=== PATIENT | male | born 1980 | race Caucasian/White ===

== ENCOUNTER → 2020-02-17 | Outpatient (CLI) | payer SELFPAY ==
[~2020-02-17] MED LIST: CLONI1TA PO; LEXA5TAB13 PO; LOSA50TA88 PO; PANT20TA6 PO; SERO1TAB PO
== END ==
LOC: M LABSMTC 14:09
PROVIDERS: ATTEND Pediatrics
DX: Z20.828 Contact with and (suspected) exposure to other viral communicable diseases (principal)

== ENCOUNTER 2020-03-24 16:35 | Emergency (ER) | payer OTHER, SELFPAY ==
[~2020-03-24] VITALS: Ht 177.8 cm; Wt 129.7 kg
[2020-03-24 17:21] LABS: BASO # 0.1 10^3/uL (0.0-0.2); BASO % 1.1 % (0.0-1.0); EOS # 0.2 10^3/uL (0.0-0.5); EOS % 2.8 % (0.0-3.0); HEMATOCRIT 46.7 % (42.0-52.0); HEMOGLOBIN 15.3 g/dl (13.5-17.5); LYMPH # 2.6 10^3/uL (1.5-5.0); LYMPH % 32.2 % (24.0-44.0); MEAN CORPUSCULAR HEMOGLOBIN 30.2 pg (27.0-33.0); MEAN CORPUSCULAR HGB CONC 32.8 g/dl (32.0-36.5); MEAN CORPUSCULAR VOLUME 92.3 fl (80.0-96.0); MONO # 0.9 10^3/uL (0.0-0.8); MONO % 10.4 % (0.0-5.0); NEUTROPHILS # 4.3 10^3/uL (1.5-8.5); PLATELET COUNT, AUTOMATED 346 10^3/uL (150-450); RED BLOOD COUNT 5.06 10^6/uL (4.30-6.10); WHITE BLOOD COUNT 8.1 10^3/uL (4.0-10.0)
[2020-03-24 17:51] LABS: ALBUMIN 3.6 GM/DL (3.2-5.2); ALT/SGPT 34 U/L (12-78); BILIRUBIN,DIRECT 0.1 MG/DL (0.0-0.2); BILIRUBIN,TOTAL 0.3 MG/DL (0.2-1.0); BLOOD UREA NITROGEN 6 MG/DL (7-18); CALCIUM LEVEL 9.8 MG/DL (8.5-10.1); CARBON DIOXIDE LEVEL 26 MEQ/L (21-32); CHLORIDE LEVEL 106 MEQ/L (98-107); CREATININE FOR GFR 0.87 MG/DL (0.70-1.30); GLOMERULAR FILTRATION RATE > 60.0 (>60); GLUCOSE, FASTING 78 MG/DL (70-100); LIPASE 64 U/L (73-393); POTASSIUM SERUM 3.9 MEQ/L (3.5-5.1); SODIUM LEVEL 141 MEQ/L (136-145); TOTAL PROTEIN 7.1 GM/DL (6.4-8.2)
[2020-03-24] MEDS ORDERED: KETOROLAC 30 MG/ML 1ML VIAL IV ONE (18:15)
[2020-03-24] MEDS ORDERED: ONDANSETRON 4MG/2ML VIAL IV ONE (18:15)
[2020-03-24] MEDS ORDERED: NS 1,000 ML IV ONE (18:15)
[2020-03-24] MEDS ORDERED: ISOVUE-370 76% 100ML VIAL As Ordered ONE (18:23)
[2020-03-24] MEDS ORDERED: PANT20TA6 PO (18:29)
[2020-03-24] MEDS ORDERED: CLONI1TA PO (18:29)
[2020-03-24] MEDS ORDERED: SERO1TAB PO (18:29)
[2020-03-24] MEDS ORDERED: LEXA5TAB13 PO (18:29)
[2020-03-24] MEDS ORDERED: LOSA50TA88 PO (18:29)
[2020-03-24 20:55] VITALS: BP 142/89
--- NOTE | 2020-03-25 07:55 | REP ---
INDICATION: severe abd pain with hx of multiple hernias. Repeat dictation. Preliminary report is provided at the time of the exam by sandra POOL. COMPARISON: None. TECHNIQUE: Helical scanning was acquired and 4 mm axial images are re-formatted. Coronal and sagittal MPR images were generated and reviewed. The contrast enhancement dose is 100 mL of intravenous Isovue 370. FINDINGS: Preliminary digital stone gluer radiograph demonstrates an unremarkable bowel gas pattern. There is no evidence of infiltrate or significant lung nodule in the lung bases. No pleural effusion is seen. There is evidence of mild diffuse fatty infiltration of the liver. No focal liver lesion is seen. The liver is not enlarged. The spleen is normal in size homogeneous in texture. The gallbladder is somewhat contracted in appearance no definite wall thickening or stone. No pericholecystic fluid is seen. Common bile duct does not appear to be dilated. No intrahepatic biliary ductal dilation is observed. There is a descending duodenal diverticulum. No abnormality is noted in the pancreas. Normal adrenal glands are seen bilaterally. Kidneys enhance symmetrically and are morphologically intact. A small sliding-type hiatal hernia is noted. A normal appendix is seen in the right lower quadrant. Small and large bowel loops are normal in the upper abdomen. There is some diastasis of the rectus abdominus muscles and there appears to have been a ventral hernia repair. There is persistent herniation of a small quantity of abdominal fat and the anterior wall of adjacent loop of small bowel in the infraumbilical region of the midline abdominal wall. There also appears to be a left inguinal hernia trans [place] abdominal fat. Prostate is mildly prominent. Seminal vesicles and urinary bladder are unremarkable. On bone window settings, there are mild degenerative spine changes. There is an old healed rib fracture of the right posterior 11th rib. No bony destructive lesion. IMPRESSION: Hiatal, infraumbilical ventral, and left inguinal hernias as above. Mild fatty infiltration of the liver. No evidence of bowel obstruction or other acute abdominal abnormality. The gallbladder is small and contracted. <Electronically signed by Valeriano Vazquez > 03/25/20 [id number]
== END 2020-03-24 21:05 | disposition home or self-care (01) ==
LOC: M ED 16:35
DX: R10.9 Unspecified abdominal pain (principal); K42.9 Umbilical hernia without obstruction or gangrene; K76.0 Fatty (change of) liver, not elsewhere classified; F17.200 Nicotine dependence, unspecified, uncomplicated; K21.9 Gastro-esophageal reflux disease without esophagitis; I10 Essential (primary) hypertension; Z91.018 Allergy to other foods
CPT/HCPCS: 74177; 80048; 80076; 81001; 83690; 85025; 96361; 96374; 99284; J1885; J2405; Q9967

== ENCOUNTER 2020-05-07 21:33 | Inpatient (IN) | payer MEDICAID, OTHER, SELFPAY ==
[~2020-05-07] VITALS: Ht 177.8 cm; Wt 128.4 kg
[2020-05-07] MEDS ORDERED: HALOPERIDOL 5MG/ML VIAL (J1630 PER 1) IV ONE (22:00)
[2020-05-07 22:20] LABS: BASO # 0.1 10^3/uL (0.0-0.2); BASO % 0.6 % (0.0-1.0); EOS # 0.3 10^3/uL (0.0-0.5); EOS % 2.7 % (0.0-3.0); HEMATOCRIT 42.7 % (42.0-52.0); HEMOGLOBIN 13.8 g/dl (13.5-17.5); LYMPH # 2.7 10^3/uL (1.5-5.0); LYMPH % 25.6 % (24.0-44.0); MEAN CORPUSCULAR HEMOGLOBIN 29.9 pg (27.0-33.0); MEAN CORPUSCULAR HGB CONC 32.3 g/dl (32.0-36.5); MEAN CORPUSCULAR VOLUME 92.4 fl (80.0-96.0); MONO % 9.2 % (0.0-5.0); NEUTROPHILS # 6.4 10^3/uL (1.5-8.5); NEUTROPHILS % 61.5 % (36.0-66.0); PLATELET COUNT, AUTOMATED 316 10^3/uL (150-450); RED BLOOD COUNT 4.62 10^6/uL (4.30-6.10); WHITE BLOOD COUNT 10.4 10^3/uL (4.0-10.0)
[2020-05-07] MEDS ORDERED: ISOVUE-370 76% 100ML VIAL As Ordered ONE ×2 (22:20→23:37)
[2020-05-07 23:08] LABS: ALBUMIN 3.3 GM/DL (3.2-5.2); ALT/SGPT 38 U/L (12-78); BILIRUBIN,DIRECT < 0.1 MG/DL (0.0-0.2); BILIRUBIN,TOTAL 0.1 MG/DL (0.2-1.0); LIPASE 98 U/L (73-393); TOTAL PROTEIN 6.8 GM/DL (6.4-8.2)
--- NOTE | 2020-05-08 00:29 | REPVR ---
PROCEDURE INFORMATION: Exam: US Abdomen, Limited; Right Upper Quadrant Exam date and time: 05/07/2020 12:12 AM Age: 39 years old Clinical indication: Abdominal pain; Epigastric; Additional info: Upper abdominal pain; Further evaluate gallbladder TECHNIQUE: Imaging protocol: US abdomen. Real time ultrasound with image documentation. Limited exam focused on the right upper quadrant. COMPARISON: CT ABD/PEL W/IV CONTRAST ONLY 05/07/2020 10:19 PM FINDINGS: Liver: The liver demonstrates no focal defects. Gallbladder: The gallbladder demonstrates surrounding echogenic fat with wall thickening and trace pericholecystic fluid. There is internal sludge and question of minimal stones. There is a negative sono Pinedo's sign Common bile duct: The CBD measures 4 mm. Pancreas: The pancreas is normal in the head and body. The tail is not well seen due to gas shadowing. Right kidney: The right kidney measures 11.4 cm with no hydronephrosis. IMPRESSION: Minimal gallbladder sludge and stones. There is gallbladder wall thickening with trace pericholecystic fluid and suggestion of some edematous fat suggesting cholecystitis, however, there is a negative sono Pinedo's sign. Electronically signed by: Pawel Woodall On 05/08/2020 00:29:00 AM
[2020-05-08] MEDS ORDERED: LORazepam 2 MG/ML VIAL IV STA (00:58)
[2020-05-08] MEDS ORDERED: LABETALOL 100MG/20ML VIAL IV STA (00:58)
[2020-05-08] MEDS ORDERED: APIXABAN 5 MG TAB (ELIQUIS) PO ONE (01:00)
[2020-05-08 01:08] LABS: AMPHETAMINES LEVEL URINE NEGATIVE (NEGATIVE); BARBITURATES URINE NEGATIVE (NEGATIVE); BENZODIAZEPINES URINE NEGATIVE (NEGATIVE); CANNABINOIDS URINE NEGATIVE (NEGATIVE); COCAINE METABOLITE URINE NEGATIVE (NEGATIVE); METHADONE URINE NEGATIVE (NEGATIVE); OPIATES URINE NEGATIVE (NEGATIVE); PHENCYCLIDINE URINE NEGATIVE (NEGATIVE)
--- NOTE | 2020-05-08 01:49 | REPVR ---
PROCEDURE INFORMATION: Exam: US Duplex Lower Extremity Veins, Bilateral Exam date and time: 05/08/2020 1:22 AM Age: 39 years old Clinical indication: Other: Bilateral pe's; Additional info: Multiple bilateral pe's TECHNIQUE: Imaging protocol: Real-time duplex ultrasound of the extremities with 2-D bach scale, color Doppler flow and spectral waveform analysis with image documentation. Complete exam focused on the bilateral lower extremity veins. COMPARISON: No relevant prior studies available. FINDINGS: Right deep veins: Unremarkable. The common femoral, femoral, proximal profunda femoral and popliteal veins are patent without thrombus. Normal Doppler waveforms. Normal compressibility and/or augmentation response. Right superficial veins: Saphenofemoral junction is patent without thrombus. Left deep veins: Unremarkable. The common femoral, femoral, proximal profunda femoral and popliteal veins are patent without thrombus. Normal Doppler waveforms. Normal compressibility and/or augmentation response. Left superficial veins: Saphenofemoral junction is patent without thrombus. Soft tissues: Unremarkable. IMPRESSION: Negative bilateral lower extremity venous duplex exam without evidence of deep venous thrombosis. Electronically signed by: Pawel Woodall On 05/08/2020 01:48:54 AM
[2020-05-08] MEDS ORDERED: ONDANSETRON 4MG/2ML VIAL IV PRN (02:00)
[2020-05-08] MEDS ORDERED: MAALOX 30 ML SUSP *UDC PO PRN (02:00)
[2020-05-08] MEDS ORDERED: HEPARIN SOD (PORCINE) 5000UNITS/ML 1ML VIAL/SYRINGE IV ONE (02:00)
[2020-05-08] MEDS ORDERED: HEPARIN SOD (PORCINE) 5000UNITS/ML 1ML VIAL/SYRINGE IV PRN (02:00)
[2020-05-08] MEDS ORDERED: ACETAMINOPHEN TAB 650MG DOSE (2X325MG) PO PRN (02:00)
[2020-05-08] MEDS ORDERED: MOM 30ML SUSPENSION UDC PO PRN (02:00)
[2020-05-08] MEDS ORDERED: CAPTOpril 6.25 MG PER 1/2 TABLET PO ONE (02:00)
[2020-05-08 02:22] LABS: RSV AMPLIFICATION NEGATIVE (NEGATIVE)
[2020-05-08 02:37] LABS: NT-PRO BNP 174 PG/ML (<125); TROPONIN I < 0.02 NG/ML (< 0.10)
[2020-05-08 02:40] LABS: HEMOGLOBIN A1c 5.6 %
[2020-05-08 03:30] VITALS: BP 180/100
[2020-05-08] MEDS ORDERED: HEPARIN DRIP 25,000 UNITS in IV 1 EA IV SCH (03:38)
[2020-05-08] MEDS ORDERED: NS 1,000 ML IV SCH (03:52)
--- NOTE | 2020-05-08 04:23 | HPEPDOC ---
[facility] Medical History & Physical Date of Admission May 08, 2020 Date of Service: May 08, 2020 Attending Physician: BRYON JEROME MD History and Physical TIME OF SERVICE: 235am CHIEF COMPLAINT: epigastric pain HISTORY OF PRESENT ILLNESS: At the time of my exam the patient was to sedated to talk; he had been agitated on arrival to the ER and was given haloperidol and Ativan. Per this 39 yr old presented w c/o n/v epigastric pain for several days and was shaking bc the pain, was so severe and was given haloperidol. CT of the abdomen and pelvis was ordered which reported that there was increased filling of the gall bladder possibly due to cholecystitis. US identified gall bladder wall thickening, pericholecystic fluid, sludge, and possible stones but the [place] sign was neg. On the CT of the abdomen the radiologist also identified PEs and compared this to a CT from a month ago and noted that the PEs had not been mentioned in the previous scan. A dedicated CTA was done that confirmed the presence of mild bilateral PEs, there was no mention of ventricular wall strain and the RV/LV ratio was 0.83. The patient was also noted to have high blood pressure (235/116), and when asked if he was taking his meds, he broke down and started crying because he couldnt afford his meds. At the time of my evaluation the patient reported that his pain was better, he denied having CP, dyspnea, dizziness or lower extremity edema. REVIEW OF SYSTEMS: 12-point review of systems negative except as listed in HPI PAST MEDICAL/ SURGICAL HISTORY: Chronic HTN Several abdominal hernia surgeries Class 3 obesity SOCIAL HISTORY: He smokes, drinks alcohol and uses THC FAMILY HISTORY: denied family history of PE, DVT ALLERGIES: Please see below. HOME MEDICATIONS: Please see below. PHYSICAL EXAMINATION: Vital Signs Date Time Temp Pulse Resp B/P (MAP) Pulse Ox O2 Delivery O2 Flow Rate FiO2 05/07/20 21:43 235/116 (155) 05/07/20 21:48 67 100 05/07/20 21:56 97.6 20 Room Air GENERAL APPEARANCE: well nourished/ well developed / NAD CARDIOVASCULAR: RRR/NMRG/ radial pulses intact/ no LE edema LUNGS: CTAB on RA ABDOMEN: obese / soft & NT on palpation MUSCULOSKELETAL: NCAT INTEGUMENT: multiple tattoos NEUROLOGICAL: unable to assess PSYCHIATRIC: lethargic but intermittently arousable w vocal stimuli LABORATORY DATA: 05/07/20 22:08 05/07/20 22:08: Immature Granulocyte % (Auto) 0.4, Neutrophils (%) (Auto) 61.5, Lymphocytes (%) (Auto) 25.6, Monocytes (%) (Auto) 9.2H, Eosinophils (%) (Auto) 2.7, Basophils ( %) (Auto) 0.6, Neutrophils # (Auto) 6.4, Lymphocytes # (Auto) 2.7, Monocytes # (Auto) 1.0H, Eosinophils # (Auto) 0.3, Basophils # (Auto) 0.1, Nucleated Red Blood Cells % (auto) 0.0, Estimated Mean Plasma Glucose 114H, Hemoglobin A1c 5.6, Total Bilirubin 0.1L, Direct Bilirubin < 0.1, Aspartate Amino Transf (AST/SGOT) 19, Alanine Aminotransferase (ALT/SGPT) 38, Alkaline Phosphatase 62, Troponin I < 0.02, UN-Qli-B-Type Natriuretic Peptide 174H, Total Protein 6.8, Albumin 3.3, Albumin/Globulin Ratio 0.9, Lipase 98 05/08/20 00:36: Urine Opiates Screen NEGATIVE, Urine Methadone Screen NEGATIVE, Urine Barbiturates Screen NEGATIVE, Urine Phencyclidine Screen NEGATIVE, Urine Amp hetamines Screen NEGATIVE, Urine Benzodiazepines Screen NEGATIVE, Urine Cocaine Metabolite Screen NEGATIVE, Urine Cannabinoids Screen NEGATIVE 05/08/20 01:17: Coronavirus (COVID-19)(PCR) NEGATIVE, Influenza Type A (RT-PCR) NEGATIVE, Influenza Type B (RT-PCR) NEGATIVE, Respiratory Syncytial Virus (PCR) NEGATIVE IMAGING: US BLE IMPRESSION: Negative bilateral lower extremity venous duplex exam without evidence of deep venous thrombosis. US Gallbladder IMPRESSION: Minimal gallbladder sludge and stones. There is gallbladder wall thickening with trace pericholecystic fluid and suggestion of some edematous fat suggesting cholecystitis, however, there is a negative sono Pinedo's sign. CT abdomen/pelvis: (see HPI) final reports pending up load in EMR. CTA chest: (see HPI) final reports pending up load in EMR. MICROBIOLOGY: COVID 19, RSV, Influenza A/B neg ASSESSMENT: is a 39 yr old w a hx of HTN who presented w c/o n/v/ abdominal pain and was found to have subacute PEs, Hypertensive Urgency and possibly cholecystitis. PLAN: 1. Subacute PE There are no signs of RV strain or hemodynamic instability. His Trop is wnl & his BNP is 174 (slightly elevated) His BP dropped a bit low because he received labetalol CHASE Score to determine risk of complications in hemodynamically STABLE patients with Acute PE = 0 points = low risk for complications & mortality Reason for admission: [facility] Criteria for outpatient treatment = 1 point (based on his financial /social situation) = not low risk = in patient admission recommended Plan: admit to PCU / start Heparin drip for now until we confirm that he doesnt have gallbladder pathology that will require surgery and pending PFS consult to see if he will be able to get financial support to start a DOAC or will need to take Warfarin (which is less expensive) / f/u EKG and Echo 2. Uncontrolled HTN 2/2 inability to afford meds He was asymptomatic. BP still elevated despite labetalol Plan: admit to PCU / PO Captopril x 1/ then start amlodipine 2.5 mg daily with & lisinpril 5mg daily 3. N/V abdominal pain Possibly due to cholecystitis vs other cause TBD Plan: NPO/ IVF / will ask the day time team to reassess the patients abdominal pain when he is more alert and consider consulting Gen surg 4. Tobacco Abuse Plan: smoking cessation education 5. Class 3 Obesity Complicates care Plan: f/u A1C to r/o co-existing DM DVT Px: n/a on heparin drip DISPO: will need at least 2 midnights stay / PFS consult has been placed for financial assistance with meds Home Medications Scheduled Clonidine Hcl (Clonidine HCl) 0.1 Mg Tablet, 0.1 MG PO BID Escitalopram Oxalate (Lexapro) 5 Mg Tablet, 5 MG PO DAILY Losartan Potassium (Losartan Potassium) 50 Mg Tablet, 50 MG PO DAILY Pantoprazole Sodium (Pantoprazole Sodium) 20 Mg Tablet.dr, 20 MG PO DAILY Quetiapine Fumarate (Seroquel) 100 Mg Tablet, 100 MG PO QPM Allergies Coded Allergies: banana (Verified Allergy, Intermediate, hives, 03/24/20) A-FIB/CHADSVASC A-FIB History Current/History of A-Fib/PAF?: No Current PO Anticoag Therapy: No BRYON JEROME MD May 08, 2020 04:23
[2020-05-08 08:00] VITALS: BP 145/99
[2020-05-08] MEDS ORDERED: ESCITALOPRAM OXALATE 5MG TABLET (LEXAPRO) PO SCH (09:00)
[2020-05-08] MEDS ORDERED: lisinopriL 5 MG TAB PO SCH (09:00)
[2020-05-08 10:11] VITALS: BP 145/99
[2020-05-08 12:00] VITALS: BP 155/87
--- NOTE | 2020-05-08 15:41 | IPNPDOC ---
Text Note Date of Service The patient was seen on 05/08/20. NOTE SUBJECTIVE: -Pain is so much better this morning -tolerated clears this AM OBJECTIVE: GENERAL APPEARANCE: well nourished/ well developed / NAD CARDIOVASCULAR: RRR/NMRG/ radial pulses intact/ no LE edema LUNGS: CTAB on RA ABDOMEN: obese, normoactive sounds, soft, NTND, negative pinedo's MUSCULOSKELETAL: NCAT INTEGUMENT: multiple tattoos NEUROLOGICAL: CN3-12 intact, normal gait, normal speech without dysarthria PSYCHIATRIC: AOx3 LABORATORY DATA: reviewed IMAGING: US BLE IMPRESSION: Negative bilateral lower extremity venous duplex exam without evidence of deep venous thrombosis. US Gallbladder IMPRESSION: Minimal gallbladder sludge and stones. There is gallbladder wall thickening with trace pericholecystic fluid and suggestion of some edematous fat suggesting cholecystitis, however, there is a negative sono Pinedo's sign. CT abdomen/pelvis: pending final read CTA chest: pending final read MICROBIOLOGY: COVID 19, RSV, Influenza A/B neg ASSESSMENT: 39 yr old w a hx of HTN who presented w c/o n/v/ abdominal pain and was found to have subacute PEs, Hypertensive Urgency and possible cholecystitis. PLAN: 1. Subacute PE -Without signs of RV strain or hemodynamic instability. -His Trop is wnl & his BNP is 174 (slightly elevated) -DC Heparin drip and start eliquis 10 BID for 1 week with plan for 5 BID thereafter. Of note, has a surgery appt for his gall bladder on 05/17, will discuss holding for surgery etc if dorian will happen soon. 2. Uncontrolled HTN 2/2 inability to afford meds: now controlled after starting meds -continue amlodipine 2.5 mg daily with & lisinopril 5mg daily 3. N/V abdominal pain likely 2/2 cholecystitis: much improved, with CT showing sludge some inflammatory changes -Start cipro BID for 5d given bump in WBC and imaging findings -tolerated cleares --> advancing to full liquid -will hold on surgery consult with pending appt on 05/17 and improving abdominal pain. Will consult if pain worsens or he clinically declines 4. Tobacco Abuse -Provided smoking cessation education 5. Class 3 Obesity Complicates care -f/u A1C to r/o co-existing DM DVT Ppx: eliquis DISPO: will need at least 2 midnights stay / PFS consult has been placed for financial assistance with meds VS,Jabone, I+O VS, Jabone, I+O Laboratory Tests 05/07/20 22:08 Vital Signs Date Time Temp Pulse Resp B/P (MAP) Pulse Ox O2 Delivery O2 Flow Rate FiO2 05/08/20 12:00 97.1 98 22 155/87 (109) 97 Room Air I&O- Last 24 Hours up to 6 AM 05/08/20 06:00 Output Total 800 ml Balance -800 ml ASUNCION ETIENNE MD May 08, 2020 15:41
[2020-05-08 15:57] VITALS: BP 178/98
[2020-05-08] MEDS ORDERED: ELIQ5TAB PO (16:22)
--- NOTE | 2020-05-08 17:40 | DS.PDOC ---
Discharge Summary General Date of Admission May 08, 2020 at 01:55 Date of Discharge 05/08/2020 Attending Physician: ASUNCION ETIENNE MD Discharge Summary PROCEDURES PERFORMED DURING STAY: None ADMITTING DIAGNOSES: 1. Abdominal pain DISCHARGE DIAGNOSES: Cholelithiasis with likely cholecystitis Hypertensive urgency Subacute pulmonary embolism COMPLICATIONS/CHIEF COMPLAINT: Abdominal Pain,Hypertensve Urgency. HISTORY OF PRESENT ILLNESS: 39 yr old presented c/o n/v epigastric pain for several days and was shaking bc the pain, was so severe and was given haloperidol. HOSPITAL COURSE: CT of the abdomen and pelvis was ordered which reported that there was increased filling of the gall bladder possibly due to cholecystitis. US identified gall bladder wall thickening, pericholecystic fluid, sludge, and possible stones but the [place] sign was neg. On the CT of the abdomen the radiologist also identified PEs and compared this to a CT from a month ago and noted that the PEs had not been mentioned in the previous scan. A dedicated CTA was done that confirmed the presence of mild bilateral PEs, there was no mention of ventricular wall strain and the RV/LV ratio was 0.83. The patient was also noted to have high blood pressure (235/116), and when asked if he was taking his meds, he broke down and started crying because he couldnt afford his meds. He was ad mitted and treated for hypertensive urgency and BP normalized and by day 2, abdominal pain had tremendously improved. He tolerated a diet and in the mean time, he had been started on a heparin gtt from which he was transitioned to eliquis for the PEs. Before he could have a regular diet (last diet was full liquid) and as the eliquis was getting started, he demanded to leave and sign out AMA. With c/f meds affordability I urged him to stay to get PFS' help with medication assistance but he declined. I gave him an eliquis discount card and he confirmed that he would pay for it with gonzalez and restart his clonidine for BP and demanded to be discharged. DISCHARGE MEDICATIONS: Please see below. ALLERGIES: Please see below. PHYSICAL EXAMINATION ON DISCHARGE: VITAL SIGNS: Please see below. GENERAL APPEARANCE: well nourished/ well developed / NAD CARDIOVASCULAR: RRR/NMRG/ radial pulses intact/ no LE edema LUNGS: CTAB on RA ABDOMEN: obese, normoactive sounds, soft, NTND, negative pinedo's MUSCULOSKELETAL: NCAT INTEGUMENT: multiple tattoos NEUROLOGICAL: CN3-12 intact, normal gait, normal speech without dysarthria PSYCHIATRIC: AOx3 LABORATORY DATA: see below IMAGING: US BLE IMPRESSION: Negative bilateral lower extremity venous duplex exam without evidence of deep venous thrombosis. US Gallbladder IMPRESSION: Minimal gallbladder sludge and stones. There is gallbladder wall thickening with trace pericholecystic fluid and suggestion of some edematous fat suggesting cholecystitis, however, there is a negative sono Pinedo's sign. CT abdomen/pelvis: pending final read CTA chest: pending final read PROGNOSIS: Good if he takes his medications and follows up with PCP and surgery (has an appt on 05/17/20 per patient) ACTIVITY: As tolerated. DIET: As tolerated. DISCHARGE PLAN: AMA to home DISPOSITION: 07 Against Medical Advice. DISCHARGE INSTRUCTIONS: Please do take the eliquis as prescribed. Follow up with PCP within 1 week and surgeon on 05.17.20 as reportedly scheduled. ITEMS TO FOLLOWUP ON ON OUTPATIENT: Cholecystitis HTN PEs DISCHARGE CONDITION: Stable TIME SPENT ON DISCHARGE: 45 minutes. Vital Signs/I&Os Vital Signs Date Time Temp Pulse Resp B/P (MAP) Pulse Ox O2 Delivery O2 Flow Rate FiO2 05/08/20 15:57 97.6 79 20 178/98 (124) 100 Room Air I&O- Last 24 Hours up to 6 AM 05/08/20 05:59 Output Total 800 ml Balance -800 ml Laboratory Data Labs 24H Laboratory Tests 2 05/07/20 22:08: Immature Granulocyte % (Auto) 0.4, Neutrophils (%) (Auto) 61.5, Lymphocytes (%) (Auto) 25.6, Monocytes (%) (Auto) 9.2H, Eosinophils (%) (Auto) 2.7, Basophils (%) (Auto) 0.6, Neutrophils # (Auto) 6.4, Lymphocytes # (Auto) 2.7, Monocytes # (Auto) 1.0H, Eosinophils # (Auto) 0.3, Basophils # (Auto) 0.1, Nucleated Red Blood Cells % (auto) 0.0, Estimated Mean Plasma Glucose 114H, Hemoglobin A1c 5.6, Total Bilirubin 0.1L, Direct Bilirubin < 0.1, Aspartate Amino Transf (AST/SGOT) 19, Alanine Aminotransferase (ALT/SGPT) 38, Alkaline Phosphatase 62, Troponin I < 0.02, YI-Awx-V-Type Natriuretic Peptide 174H, Total Protein 6.8, Albumin 3.3, Albumin/Globulin Ratio 0.9, Lipase 98 05/07/20 22:14: POC Glucose (Misc Panel) 111H, POC Sodium (Misc Panel) 136, POC Potassium (Misc Panel) 4.2, POC Chloride (Misc Panel) 100, POC Total CO2 (Misc Panel) 25.0, POC Blood Urea Nitrogen (Misc Panel 12, POC Ionized Calcium (Misc Panel) 4.7, POC Creatinine (Misc Panel) 0.7, POC Hematocrit (Misc Panel) 48.0 05/08/20 00:36: Urine Opiates Screen NEGATIVE, Urine Methadone Screen NEGATIVE, Urine Barbit urates Screen NEGATIVE, Urine Phencyclidine Screen NEGATIVE, Urine Amphetamines Screen NEGATIVE, Urine Benzodiazepines Screen NEGATIVE, Urine Cocaine Metabolite Screen NEGATIVE, Urine Cannabinoids Screen NEGATIVE 05/08/20 01:17: Coronavirus (COVID-19)(PCR) NEGATIVE, Influenza Type A (RT-PCR) NEGATIVE, Influenza Type B (RT-PCR) NEGATIVE, Respiratory Syncytial Virus (PCR) NEGATIVE 05/08/20 03:46: Activated Partial Thromboplast Time 178.8*H 05/08/20 11:38: Activated Partial Thromboplast Time 60.4H CBC/BMP Laboratory Tests 05/07/20 22:08 Discharge Medications Scheduled Apixaban (Eliquis) 5 Mg Tablet, 10 MG PO Q12H 2 tabs (10mg) twice daily for 7d, then 1 tab (5mg) twice daily thereafter Clonidine Hcl (Clonidine HCl) 0.1 Mg Tablet, 0.1 MG PO BID, (Reported) Escitalopram Oxalate (Lexapro) 5 Mg Tablet, 5 MG PO DAILY, (Reported) Losartan Potassium (Losartan Potassium) 50 Mg Tablet, 50 MG PO DAILY, (Reported) Pantoprazole Sodium (Pantoprazole Sodium) 20 Mg Tablet.dr, 20 MG PO DAILY, (Reported) Quetiapine Fumarate (Seroquel) 100 Mg Tablet, 100 MG PO QPM, (Reported) Allergies Coded Allergies: banana (Verified Allergy, Intermediate, hives, 03/24/20) ASUNCION ETIENNE MD May 08, 2020 17:40
[2020-05-08] MEDS ORDERED: CIPROFLOXACIN 500MG TABLET PO SCH (18:00)
[2020-05-08] MEDS ORDERED: APIXABAN 5 MG TAB (ELIQUIS) PO SCH (18:00)
[2020-05-08] MEDS ORDERED: QUEtiapine FUMARATE 100 MG TAB PO SCH (21:00)
--- NOTE | 2020-05-08 23:14 | ECGEPIP ---
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
--- NOTE | 2020-05-09 08:31 | REP ---
INDICATION: ?right pulmonary artery filling defect COMPARISON: None. TECHNIQUE: Axial contrast enhanced images from the thoracic inlet to the upper abdomen using pulmonary embolus technique with multiplanar re-formations. 50 ml Isovue 370 intravenous contrast material administered without complication. This CT examination was performed using the following dose reduction techniques: Automated exposure control, adjustment of mA and/or kv according to the patient's size, and use of iterative reconstruction technique. FINDINGS: Satisfactory enhancement of the pulmonary vasculature is achieved and acute emboli are identified in the 3rd order right lower lobe pulmonary arteries (series 401; images 93-107). Few smaller scattered pulmonary emboli cannot be excluded as well. Thoracic aorta is normal and without aneurysm or dissection. Heart and pericardium are normal. RV/LV ratio is normal at 0.83. No cardiomegaly or pericardial effusion. The lung walker are essentially clear and without consolidation, effusion, or pneumothorax. No significant adenopathy noted. Tracheobronchial tree is patent. Vertebral bodies demonstrate mild presumed chronic compression deformity at T11. IMPRESSION: 1. Small pulmonary emboli primarily involving distal right lower lobe pulmonary branches. No associated acute pleuroparenchymal process. 2. Mild presumed chronic compression deformity at T11 should be correlated clinically and appears relatively unchanged compared through 03/24/2020. Note: Preliminary report by overnight radiology service deliver to the ER at 12:27 20 00:10 a.m. <Electronically signed by Osiel Cash > 05/09/20 1960
--- NOTE | 2020-05-09 08:37 | REP ---
INDICATION: severe upper abdominal pain. COMPARISON: None TECHNIQUE: Axial contrast-enhanced images from the lung bases to the pubic symphysis using 100 cc Isovue 370 intravenous contrast material. Coronal and sagittal reformations obtained. This CT examination was performed using the following dose reduction techniques: Automated exposure control, adjustment of mA and/or kv according to the patient's size, and the use of iterative reconstruction technique. FINDINGS: Mild hepatosteatosis suggested. The gallbladder demonstrates mild wall thickening and subtle pericholecystic fluid raising the possibility of acute cholecystitis. Spleen, pancreas, bilateral adrenal glands and kidneys are normal. The enteric system is without obstruction or acute inflammatory process. Normal terminal ileum and appendix are identified in the right lower quadrant. Fat containing ventral hernia noted. Pelvis demonstrates normal bladder and age-appropriate prostate/seminal vesicles along with moderate left fat containing inguinal hernia. No ascites. No free air. No adenopathy. Abdominal aorta without aneurysm or dissection. Musculoskeletal structures are intact. Incidental subtle compression deformity at T11 is likely chronic based on adjacent bridging T10-11 osteophytes. IMPRESSION: 1. Possible acute cholecystitis requires ultrasound evaluation. 2. Fat containing ventral and left inguinal hernias. 3. Presumed chronic mild compression deformity at T11. Note: Preliminary report faxed to the ER via overnight radiology services on 05/07/2020 at 23:13 <Electronically signed by Osiel Cash > 05/09/20 [id number]
== END 2020-05-08 16:47 | disposition left against medical advice (07) ==
LOC: M ED 21:33 → M ED INP 05-08 01:55 → M PCU 05-08 03:25
PROVIDERS: ADMIT Internal Medicine; ATTEND Internal Medicine
DX: K81.2 Acute cholecystitis with chronic cholecystitis (principal); I26.99 Other pulmonary embolism without acute cor pulmonale; I16.0 Hypertensive urgency; Z79.899 Other long term (current) drug therapy; Z91.018 Allergy to other foods; I10 Essential (primary) hypertension; F17.200 Nicotine dependence, unspecified, uncomplicated; E66.9 Obesity, unspecified

== ENCOUNTER 2021-07-31 14:03 | Emergency (ER) | payer OTHER, MEDICAID ==
[~2021-07-31] VITALS: Ht 177.8 cm; Wt 113.0 kg
[~2021-07-31 14:03] MED LIST changes: +ELIQ5TAB PO; +LOSA50TA28 PO; -LOSA50TA88 PO
[2021-07-31] MEDS ORDERED: MORPHINE 4 MG/ML 1ML VIAL/SYRINGE (J2270) IV ONE (15:15)
[2021-07-31] MEDS ORDERED: ONDANSETRON 4MG/2ML VIAL IV ONE (15:15)
[2021-07-31 15:46] LABS: BASO # 0.1 10^3/uL (0.0-0.2); BASO % 0.8 % (0.0-1.0); EOS # 0.2 10^3/uL (0.0-0.5); EOS % 2.1 % (0.0-3.0); HEMATOCRIT 48.1 % (42.0-52.0); HEMOGLOBIN 16.1 g/dl (13.5-17.5); LYMPH # 2.4 10^3/uL (1.5-5.0); MEAN CORPUSCULAR HGB CONC 33.5 g/dl (32.0-36.5); MEAN CORPUSCULAR VOLUME 89.6 fl (80.0-96.0); MONO # 0.8 10^3/uL (0.0-0.8); MONO % 9.4 % (2.0-8.0); NEUTROPHILS # 5.4 10^3/uL (1.5-8.5); NEUTROPHILS % 60.6 % (36.0-66.0); PLATELET COUNT, AUTOMATED 358 10^3/uL (150-450); RED BLOOD COUNT 5.37 10^6/uL (4.30-6.10); WHITE BLOOD COUNT 8.9 10^3/uL (4.0-10.0)
[2021-07-31 16:08] LABS: ALBUMIN 3.8 GM/DL (3.2-5.2); ALT/SGPT 29 U/L (12-78); BILIRUBIN,DIRECT < 0.1 MG/DL (0.0-0.2); BILIRUBIN,TOTAL 0.2 MG/DL (0.2-1.0); BLOOD UREA NITROGEN 9 MG/DL (7-18); CALCIUM LEVEL 9.1 MG/DL (8.5-10.1); CARBON DIOXIDE LEVEL 30 MEQ/L (21-32); CHLORIDE LEVEL 106 MEQ/L (98-107); CREATININE FOR GFR 0.77 MG/DL (0.70-1.30); GLOMERULAR FILTRATION RATE > 60.0 (>60); GLUCOSE, FASTING 83 MG/DL (70-100); LIPASE 102 U/L (73-393); POTASSIUM SERUM 4.6 MEQ/L (3.5-5.1); SODIUM LEVEL 139 MEQ/L (136-145); TOTAL PROTEIN 7.4 GM/DL (6.4-8.2)
[2021-07-31] MEDS ORDERED: ISOVUE-370 76% 100ML VIAL As Ordered ONE (16:50)
[2021-07-31] MEDS ORDERED: PANT20TA6 PO (18:11)
[2021-07-31] MEDS ORDERED: LOSA25TA13 PO (18:11)
[2021-07-31] MEDS ORDERED: LOSARTAN 25 MG TAB PO ONE (18:15)
[2021-07-31 18:19] VITALS: BP 125/78
[2021-07-31 18:44] VITALS: BP 139/96
== END 2021-07-31 19:00 | disposition home or self-care (01) ==
LOC: M ED 14:03
DX: K57.10 Diverticulosis of small intestine without perforation or abscess without bleeding (principal); K42.9 Umbilical hernia without obstruction or gangrene; K40.90 Unilateral inguinal hernia, without obstruction or gangrene, not specified as recurrent; I10 Essential (primary) hypertension; Z91.02 Food additives allergy status; Z79.899 Other long term (current) drug therapy
CPT/HCPCS: 74177; 80048; 80076; 83690; 85025; 96374; 99284; J2270; J2405; Q9967

== ENCOUNTER → 2021-08-08 | Outpatient (REF) | payer OTHER ==
[~2021-08-08] MED LIST changes: +LOSA25TA13 PO
[2021-08-08 18:29] LABS: APPEARANCE, URINE CLEAR (CLEAR); BACTERIA, URINE AUTO NEGATIVE (NEGATIVE); BILIRUBIN, URINE AUTO NEGATIVE (NEGATIVE); BLOOD, URINE BLOOD 1+ (NEGATIVE); COLOR, URINE YELLOW (YELLOW); GLUCOSE, URINE (UA) AUTO NEGATIVE (NEGATIVE); KETONE, URINE AUTO NEGATIVE (NEGATIVE); LEUKOCYTE ESTERASE, URINE AUTO NEGATIVE (NEGATIVE); NITRITE, URINE AUTO NEGATIVE (NEGATIVE); PROTEIN, URINE AUTO NEGATIVE (NEGATIVE); RBC, URINE AUTO 1 /HPF (0-3); SPECIFIC GRAVITY URINE AUTO 1.016 (1.002-1.035); SQUAMOUS EPITHELIAL CELL UR AU 0 /HPF (0-6); UROBILINOGEN, URINE AUTO 0.2 mg/dL (0.0-2.0); WBC, URINE AUTO 2 /HPF (0-3)
== END ==
LOC: M SFHCADAM 16:02
PROVIDERS: ATTEND Physician Assistant Medical
DX: N32.89 Other specified disorders of bladder (principal)

== ENCOUNTER 2022-01-08 12:28 | Inpatient (IN) | payer OTHER ==
[~2022-01-08] VITALS: Ht 177.8 cm; Wt 118.4 kg
[2022-01-08 13:43] LABS: HEMATOCRIT 42.3 % (42.0-52.0); HEMOGLOBIN 14.2 g/dl (13.5-17.5); MEAN CORPUSCULAR HEMOGLOBIN 30.2 pg (27.0-33.0); MEAN CORPUSCULAR HGB CONC 33.6 g/dl (32.0-36.5); PLATELET COUNT, AUTOMATED 285 10^3/uL (150-450); WHITE BLOOD COUNT 8.4 10^3/uL (4.0-10.0)
[2022-01-08 14:13] LABS: RSV AMPLIFICATION NEGATIVE (NEGATIVE)
[2022-01-08 14:20] LABS: AMPHETAMINES LEVEL URINE NEGATIVE (NEGATIVE); BARBITURATES URINE NEGATIVE (NEGATIVE); BENZODIAZEPINES URINE NEGATIVE (NEGATIVE); CANNABINOIDS URINE NEGATIVE (NEGATIVE); COCAINE METABOLITE URINE NEGATIVE (NEGATIVE); METHADONE URINE NEGATIVE (NEGATIVE); OPIATES URINE NEGATIVE (NEGATIVE); PHENCYCLIDINE URINE NEGATIVE (NEGATIVE)
[2022-01-08 14:33] LABS: ACETAMINOPHEN LEVEL < 2.0 UG/ML (10.0-30.0); ALBUMIN 3.6 GM/DL (3.2-5.2); ALT/SGPT 33 U/L (12-78); BILIRUBIN,DIRECT 0.1 MG/DL (0.0-0.2); BILIRUBIN,TOTAL 0.3 MG/DL (0.2-1.0); BLOOD UREA NITROGEN 10 MG/DL (7-18); CALCIUM LEVEL 8.9 MG/DL (8.5-10.1); CARBON DIOXIDE LEVEL 23 MEQ/L (21-32); CHLORIDE LEVEL 108 MEQ/L (98-107); CREATININE FOR GFR 0.77 MG/DL (0.70-1.30); ETHYL ALCOHOL (ETHANOL) < 0.003 % (0.000-0.010); GLOMERULAR FILTRATION RATE > 60.0 (>60); GLUCOSE, FASTING 111 MG/DL (70-100); POTASSIUM SERUM 3.8 MEQ/L (3.5-5.1); SALICYLATE LEVEL 1.9 MG/DL (5.0-30.0); SODIUM LEVEL 138 MEQ/L (136-145); THYROID STIMULATING HORMONE 0.458 uIU/ML (0.358-3.740); TOTAL PROTEIN 6.9 GM/DL (6.4-8.2)
[2022-01-08] MEDS ORDERED: HOME MED LIST COMPLETE! XX SCH (20:00)
[2022-01-11 12:49] LABS: RSV AMPLIFICATION NEGATIVE (NEGATIVE)
[2022-01-11] MEDS ORDERED: MOM 30ML SUSPENSION UDC PO PRN (13:05)
[2022-01-11] MEDS ORDERED: diphenhydrAMINE 25MG CAP PO PRN (13:05)
[2022-01-11] MEDS ORDERED: MAALOX 30 ML SUSP *UDC PO PRN (13:05)
[2022-01-11 14:17] VITALS: BP 153/90
[2022-01-11] MEDS: NICOTINE 21MG/24HR 1 EA TRANSDERMAL TD SCH (15:42)
[2022-01-11 18:15] VITALS: BP 160/85
[2022-01-12 06:29] VITALS: BP 136/78
[2022-01-12] MEDS: NICOTINE 21MG/24HR 1 EA TRANSDERMAL TD SCH (08:54)
[2022-01-12] MEDS: LOSARTAN 50MG TABLET PO SCH (11:11)
[2022-01-12] MEDS: DIVALPROEX 250 MG TAB PO SCH ×2 (11:11→21:36)
[2022-01-12] MEDS: LORazepam 1 MG TAB PO PRN ×2 (13:13→21:37)
[2022-01-12 16:09] VITALS: BP 116/58
[2022-01-13 06:21] VITALS: BP 105/60
[2022-01-13] MEDS: DIVALPROEX 250 MG TAB PO SCH ×2 (09:43→22:21)
[2022-01-13] MEDS: LOSARTAN 50MG TABLET PO SCH (09:43)
[2022-01-13] MEDS: NICOTINE 21MG/24HR 1 EA TRANSDERMAL TD SCH (09:44)
[2022-01-13 16:06] VITALS: BP 111/64
[2022-01-13] MEDS: LORazepam 1 MG TAB PO PRN (22:22)
[2022-01-14 06:19] VITALS: BP 140/89
[2022-01-14] MEDS: LOSARTAN 50MG TABLET PO SCH (08:48)
[2022-01-14] MEDS: DIVALPROEX 250 MG TAB PO SCH ×2 (08:48→21:46)
[2022-01-14] MEDS: NICOTINE 21MG/24HR 1 EA TRANSDERMAL TD SCH (08:48)
[2022-01-14] MEDS: LORazepam 1 MG TAB PO PRN ×2 (10:39→22:45)
[2022-01-14] MEDS: busPIRone 5 MG TAB PO SCH ×2 (16:31→21:46)
[2022-01-14 16:37] VITALS: BP 140/92
[2022-01-15 06:06] VITALS: BP 97/58
[2022-01-15] MEDS: NICOTINE 21MG/24HR 1 EA TRANSDERMAL TD SCH (09:23)
[2022-01-15] MEDS: busPIRone 5 MG TAB PO SCH ×3 (09:23→21:19)
[2022-01-15] MEDS: DIVALPROEX 250 MG TAB PO SCH ×2 (09:23→21:19)
[2022-01-15] MEDS: LOSARTAN 50MG TABLET PO SCH (09:23)
[2022-01-15 18:10] VITALS: BP 134/74
[2022-01-16 06:28] VITALS: BP 140/58
[2022-01-16] MEDS: DIVALPROEX 250 MG TAB PO SCH ×2 (09:58→21:07)
[2022-01-16] MEDS: busPIRone 5 MG TAB PO SCH ×3 (09:58→21:07)
[2022-01-16] MEDS: NICOTINE 21MG/24HR 1 EA TRANSDERMAL TD SCH (09:58)
[2022-01-16] MEDS: LOSARTAN 50MG TABLET PO SCH (09:59)
[2022-01-16] MEDS: IBUPROFEN 400MG TAB PO PRN (10:55)
[2022-01-16] MEDS: LORazepam 1 MG TAB PO PRN (11:03)
[2022-01-16 17:33] VITALS: BP 141/90
[2022-01-16] MEDS: traZODone 50 MG TAB PO PRN (22:24)
[2022-01-17 06:18] VITALS: BP 116/75
[2022-01-17] MEDS: LOSARTAN 50MG TABLET PO SCH (08:40)
[2022-01-17] MEDS: busPIRone 5 MG TAB PO SCH ×3 (08:41→20:37)
[2022-01-17] MEDS: NICOTINE 21MG/24HR 1 EA TRANSDERMAL TD SCH (08:41)
[2022-01-17] MEDS: DIVALPROEX 250 MG TAB PO SCH ×2 (08:41→20:37)
[2022-01-17] MEDS: LORazepam 1 MG TAB PO PRN (11:50)
[2022-01-17 19:13] VITALS: BP 142/96
[2022-01-17] MEDS: traZODone 50 MG TAB PO PRN (22:26)
[2022-01-18 06:35] VITALS: BP 113/69
[2022-01-18] MEDS: LOSARTAN 50MG TABLET PO SCH (09:05)
[2022-01-18] MEDS: busPIRone 5 MG TAB PO SCH ×3 (09:05→20:09)
[2022-01-18] MEDS: DIVALPROEX 250 MG TAB PO SCH ×2 (09:06→20:09)
[2022-01-18] MEDS: NICOTINE 21MG/24HR 1 EA TRANSDERMAL TD SCH (09:06)
[2022-01-18] MEDS: IBUPROFEN 400MG TAB PO PRN (10:05)
[2022-01-18] MEDS: hydrOXYzine 50 MG TAB PO PRN (12:10)
[2022-01-18 17:46] VITALS: BP 126/62
[2022-01-18] MEDS: traZODone 50 MG TAB PO PRN (21:34)
[2022-01-19 06:19] VITALS: BP 128/77
[2022-01-19] MEDS: busPIRone 5 MG TAB PO SCH ×2 (09:37→14:06)
[2022-01-19] MEDS: LOSARTAN 50MG TABLET PO SCH (09:37)
[2022-01-19] MEDS: NICOTINE 21MG/24HR 1 EA TRANSDERMAL TD SCH (09:37)
[2022-01-19] MEDS: DIVALPROEX 250 MG TAB PO SCH ×2 (09:37→20:41)
[2022-01-19] MEDS: hydrOXYzine 50 MG TAB PO PRN (10:12)
[2022-01-19 16:15] VITALS: BP 154/80
[2022-01-19] MEDS: busPIRone 10 MG TAB PO SCH (20:41)
[2022-01-19] MEDS: traZODone 50 MG TAB PO PRN (21:15)
[2022-01-20 06:23] VITALS: BP 117/68
[2022-01-20] MEDS: LOSARTAN 50MG TABLET PO SCH (10:08)
[2022-01-20] MEDS: DIVALPROEX 250 MG TAB PO SCH ×2 (10:08→21:06)
[2022-01-20] MEDS: NICOTINE 21MG/24HR 1 EA TRANSDERMAL TD SCH (10:08)
[2022-01-20] MEDS: busPIRone 10 MG TAB PO SCH ×2 (10:09→21:06)
[2022-01-20] MEDS: busPIRone 5 MG TAB PO SCH (12:46)
[2022-01-20] MEDS: IBUPROFEN 400MG TAB PO PRN ×2 (12:48→19:31)
[2022-01-20] MEDS: hydrOXYzine 50 MG TAB PO PRN (13:39)
[2022-01-20 18:15] VITALS: BP 159/92
[2022-01-20] MEDS: traZODone 50 MG TAB PO PRN (21:38)
[2022-01-21 06:25] VITALS: BP 114/59
[2022-01-21] MEDS: LOSARTAN 50MG TABLET PO SCH (08:12)
[2022-01-21] MEDS: busPIRone 10 MG TAB PO SCH ×2 (08:12→20:13)
[2022-01-21] MEDS: NICOTINE 21MG/24HR 1 EA TRANSDERMAL TD SCH (08:13)
[2022-01-21] MEDS: DIVALPROEX 250 MG TAB PO SCH ×2 (08:13→20:13)
[2022-01-21] MEDS: hydrOXYzine 50 MG TAB PO PRN ×2 (12:42→21:00)
[2022-01-21] MEDS: busPIRone 5 MG TAB PO SCH (12:42)
[2022-01-21] MEDS: IBUPROFEN 400MG TAB PO PRN ×2 (14:54→21:00)
[2022-01-21 17:39] VITALS: BP 130/86
[2022-01-21] MEDS: traZODone 50 MG TAB PO PRN (20:28)
[2022-01-22 07:59] VITALS: BP 117/86
[2022-01-22] MEDS ORDERED: COZA50TA PO (08:25)
[2022-01-22] MEDS ORDERED: HYDR50TA70 PO (08:25)
[2022-01-22] MEDS ORDERED: ABIL1TAB11 PO (08:25)
[2022-01-22] MEDS ORDERED: DEPA250T32 PO (08:25)
[2022-01-22] MEDS ORDERED: BUSP5TA PO (08:25)
[2022-01-22] MEDS ORDERED: TRAZ-252 PO (08:25)
[2022-01-22] MEDS ORDERED: BUSP10TA PO (08:25)
[2022-01-22 08:53] VITALS: BP 117/86
[2022-01-22] MEDS: busPIRone 10 MG TAB PO SCH (08:53)
[2022-01-22] MEDS: NICOTINE 21MG/24HR 1 EA TRANSDERMAL TD SCH (08:53)
[2022-01-22] MEDS: LOSARTAN 50MG TABLET PO SCH (08:53)
[2022-01-22] MEDS: hydrOXYzine 50 MG TAB PO PRN (08:54)
[2022-01-22] MEDS: DIVALPROEX 250 MG TAB PO SCH (08:54)
== END 2022-01-22 11:46 | disposition home or self-care (01) | DRG 753 ==
LOC: M ED 12:28 → M ED INP 01-11 13:05 → M PSY 01-11 13:54
PROVIDERS: ADMIT Student in an Organized Health Care Education/Training Program; ATTEND Psychiatry & Neurology Psychiatry
DX: F31.64 Bipolar disorder, current episode mixed, severe, with psychotic features (principal); I10 Essential (primary) hypertension; F17.210 Nicotine dependence, cigarettes, uncomplicated; F12.90 Cannabis use, unspecified, uncomplicated; F10.10 Alcohol abuse, uncomplicated; Z91.018 Allergy to other foods

== ENCOUNTER 2023-02-15 20:05 | Inpatient (IN) | payer MEDICAID, OTHER ==
[~2023-02-15] VITALS: Ht 177.8 cm; Wt 110.1 kg
[~2023-02-15 20:05] MED LIST changes: +ABIL1TAB11 PO; +BUSP10TA PO; +BUSP5TA PO; +DEPA250T32 PO; +HYDR50TA70 PO; +LOSA-528 PO; +TRAZ-252 PO
[2023-02-15 22:13] LABS: HEMATOCRIT 41.3 % (42.0-52.0); HEMOGLOBIN 14.4 g/dl (13.5-17.5); MEAN CORPUSCULAR HEMOGLOBIN 31.7 pg (27.0-33.0); MEAN CORPUSCULAR HGB CONC 34.9 g/dl (32.0-36.5); PLATELET COUNT, AUTOMATED 318 10^3/uL (150-450); RED BLOOD COUNT 4.54 10^6/uL (4.30-6.10); WHITE BLOOD COUNT 8.8 10^3/uL (4.0-10.0)
[2023-02-15 22:35] LABS: ETHYL ALCOHOL (ETHANOL) 0.092 % (0.000-0.010)
[2023-02-15 22:36] LABS: VALPROIC ACID (DEPAKOTE) < 3.0 UG/ML (50.0-100.0)
[2023-02-15 22:37] LABS: ACETAMINOPHEN LEVEL < 2.0 UG/ML (10.0-20.0); SALICYLATE LEVEL < 3.0 MG/DL (<30)
[2023-02-15 22:41] LABS: THYROID STIMULATING HORMONE 0.994 uIU/ML (0.55-4.78)
[2023-02-15 22:46] LABS: ALBUMIN 3.5 G/DL (3.2-5.2); ALKALINE PHOSPHATASE 57 U/L (46-116); ALT/SGPT 15 U/L (7.0-40); AST/SGOT 14 U/L (<34); BARBITURATES URINE NEGATIVE (NEGATIVE); BILIRUBIN,DIRECT < 0.1 MG/DL (<0.4); BILIRUBIN,TOTAL < 0.2 MG/DL (0.3-1.2); BLOOD UREA NITROGEN 11 MG/DL (9-23); CALCIUM LEVEL 9.1 MG/DL (8.5-10.1); CARBON DIOXIDE LEVEL 21 MMOL/L (20-31); CHLORIDE LEVEL 110 MMOL/L (98-107); COCAINE METABOLITE URINE NEGATIVE (NEGATIVE); CREATININE FOR GFR 0.69 MG/DL (0.70-1.30); GLOMERULAR FILTRATION RATE > 60.0 (>60); GLUCOSE, FASTING 91 MG/DL (60-100); METHADONE URINE NEGATIVE (NEGATIVE); PHENCYCLIDINE URINE NEGATIVE (NEGATIVE); POTASSIUM SERUM 4.1 MMOL/L (3.5-5.1); SODIUM LEVEL 142 MMOL/L (136-145); TOTAL PROTEIN 6.4 G/DL (5.7-8.2)
[2023-02-15 22:47] LABS: BENZODIAZEPINES URINE NEGATIVE (NEGATIVE); CANNABINOIDS URINE NEGATIVE (NEGATIVE); OPIATES URINE NEGATIVE (NEGATIVE)
[2023-02-15 22:48] LABS: AMPHETAMINES LEVEL URINE POSITIVE (NEGATIVE)
[2023-02-15] MEDS ORDERED: LOSA100T46 PO (23:58)
[2023-02-15] MEDS ORDERED: BUSP10TA PO (23:58)
[2023-02-16] MEDS ORDERED: HOME MED LIST COMPLETE! XX SCH
[2023-02-17] MEDS: busPIRone 10 MG TAB PO SCH (21:00)
[2023-02-18] MEDS ORDERED: LOSARTAN 50MG TABLET PO SCH (09:00)
[2023-02-18] MEDS: busPIRone 10 MG TAB PO SCH ×2 (09:02→21:53)
[2023-02-18] MEDS ORDERED: diphenhydrAMINE 25MG CAP PO PRN (15:30)
[2023-02-18] MEDS ORDERED: traZODone 50 MG TAB PO PRN (15:30)
[2023-02-18] MEDS ORDERED: MAALOX 30 ML SUSP *UDC PO PRN (15:30)
[2023-02-18] MEDS ORDERED: ACETAMINOPHEN TAB 650MG DOSE (2X325MG) PO PRN (15:30)
[2023-02-18] MEDS ORDERED: OLANZapine ORAL DISINTEGRATING TAB 5MG PO PRN (15:30)
[2023-02-18] MEDS ORDERED: MOM 30ML SUSPENSION UDC PO PRN (15:30)
[2023-02-18] MEDS ORDERED: IBUPROFEN 400MG TAB PO PRN (15:30)
[2023-02-18] MEDS ORDERED: LORazepam 2 MG TAB PO ONE (17:00)
[2023-02-18] MEDS ORDERED: OLANZapine ORAL DISINTEGRATING TAB 5MG PO ONE (17:00)
[2023-02-19] MEDS: LOSARTAN 50MG TABLET PO SCH (07:35)
[2023-02-19] MEDS: busPIRone 10 MG TAB PO SCH ×2 (07:35→20:53)
[2023-02-19] MEDS ORDERED: busPIRone 10 MG TAB PO SCH (09:00)
[2023-02-19] MEDS ORDERED: LORazepam 2 MG TAB PO PRN (14:10)
[2023-02-19] MEDS: MULTIVITAMINS/MINERALS THERAP 1 TAB PO SCH (14:38)
[2023-02-19] MEDS: FOLIC ACID 1MG TAB PO SCH (14:38)
[2023-02-19] MEDS: THIAMINE 100 MG TAB PO SCH ×2 (14:38→20:51)
[2023-02-19 16:19] VITALS: BP 126/75; TEMP 97.8; O2SAT 98
[2023-02-19] MEDS ORDERED: MAALOX 30 ML SUSP *UDC PO PRN (20:15)
[2023-02-19] MEDS ORDERED: ACETAMINOPHEN TAB 650MG DOSE (2X325MG) PO PRN (20:15)
[2023-02-19] MEDS ORDERED: traZODone 50 MG TAB PO PRN (20:15)
[2023-02-19] MEDS ORDERED: MOM 30ML SUSPENSION UDC PO PRN (20:15)
[2023-02-19] MEDS: NICOTINE 21MG/24HR 1 EA TRANSDERMAL TD PRN (20:51)
[2023-02-20 01:00] VITALS: BP 126/75
[2023-02-20 06:50] VITALS: BP 138/81; TEMP 96.9; O2SAT 99
[2023-02-20] MEDS: busPIRone 10 MG TAB PO SCH ×2 (08:58→20:06)
[2023-02-20] MEDS: MULTIVITAMINS/MINERALS THERAP 1 TAB PO SCH (08:59)
[2023-02-20] MEDS: THIAMINE 100 MG TAB PO SCH (08:59)
[2023-02-20] MEDS: LOSARTAN 50MG TABLET PO SCH (08:59)
[2023-02-20] MEDS: FOLIC ACID 1MG TAB PO SCH (08:59)
[2023-02-20 09:00] VITALS: BP 139/86
[2023-02-20] MEDS ORDERED: QUEtiapine FUMARATE 25 MG TAB PO PRN (11:25)
[2023-02-20] MEDS ORDERED: PILL CUTTER 1 EACH XX PRN (11:35)
[2023-02-20] MEDS: DIVALPROEX 250MG *ER* TAB PO SCH ×2 (12:40→20:06)
[2023-02-20 16:30] VITALS: BP 137/72; TEMP 98.9; O2SAT 98
[2023-02-20] MEDS ORDERED: ARIPiprazole 15 MG TAB (AbiLIFY) PO SCH (21:00)
[2023-02-21 06:30] VITALS: BP 137/89; TEMP 98.2; O2SAT 98
[2023-02-21 07:25] LABS: CHOLESTEROL RISK RATIO 3.78 (<5); HDL CHOLESTEROL 49.7 MG/DL (>40); LDL CHOLESTEROL 93.5 MG/DL (<100); NON-HDL-C 138.3 MG/DL
[2023-02-21 09:32] VITALS: BP 131/72
[2023-02-21] MEDS: busPIRone 10 MG TAB PO SCH ×2 (09:34→20:20)
[2023-02-21] MEDS: LOSARTAN 50MG TABLET PO SCH (09:35)
[2023-02-21] MEDS: DIVALPROEX 250MG *ER* TAB PO SCH (09:35)
[2023-02-21] MEDS: NICOTINE 21MG/24HR 1 EA TRANSDERMAL TD PRN (09:37)
[2023-02-21] MEDS ORDERED: QUEtiapine FUMARATE 25 MG TAB PO PRN (11:50)
[2023-02-21] MEDS: guaiFENesin ER TABLET 600 MG TAB PO SCH (17:12)
[2023-02-21 18:14] VITALS: BP 135/81; TEMP 97.4; O2SAT 99
[2023-02-21] MEDS: DIVALPROEX 500MG *ER* TAB PO SCH (20:18)
[2023-02-21] MEDS: QUEtiapine FUMARATE 25 MG TAB PO SCH (20:20)
[2023-02-21] MEDS: ARIPiprazole 15 MG TAB (AbiLIFY) PO SCH (20:20)
[2023-02-22 06:25] VITALS: BP 128/69; TEMP 98.1; O2SAT 98
[2023-02-22] MEDS: LOSARTAN 50MG TABLET PO SCH (07:33)
[2023-02-22] MEDS: guaiFENesin ER TABLET 600 MG TAB PO SCH ×2 (07:34→20:03)
[2023-02-22] MEDS: DIVALPROEX 500MG *ER* TAB PO SCH ×2 (07:34→20:03)
[2023-02-22] MEDS: busPIRone 10 MG TAB PO SCH ×2 (07:34→20:03)
[2023-02-22] MEDS: NICOTINE 21MG/24HR 1 EA TRANSDERMAL TD PRN (09:46)
[2023-02-22 16:36] VITALS: BP 116/60; TEMP 97.9; O2SAT 100
[2023-02-22] MEDS: ARIPiprazole 15 MG TAB (AbiLIFY) PO SCH (20:03)
[2023-02-22] MEDS: QUEtiapine FUMARATE 25 MG TAB PO SCH (20:03)
[2023-02-23 06:47] VITALS: BP 135/86; TEMP 97.9; O2SAT 99
[2023-02-23] MEDS: LOSARTAN 50MG TABLET PO SCH (09:23)
[2023-02-23] MEDS: DIVALPROEX 500MG *ER* TAB PO SCH ×2 (09:24→20:41)
[2023-02-23] MEDS: busPIRone 10 MG TAB PO SCH ×2 (09:24→20:41)
[2023-02-23] MEDS: guaiFENesin ER TABLET 600 MG TAB PO SCH ×2 (09:24→20:41)
[2023-02-23] MEDS: NICOTINE 21MG/24HR 1 EA TRANSDERMAL TD PRN (12:38)
[2023-02-23] MEDS ORDERED: ARIPiprazole MONOHYDRATE 400 MG INJ (ABILIFY)(FREE PSY INPT ONLY) IM ONE (13:00)
[2023-02-23 16:21] VITALS: BP 135/69; TEMP 98.8; O2SAT 100
[2023-02-23] MEDS: ARIPiprazole 15 MG TAB (AbiLIFY) PO SCH (20:41)
[2023-02-23] MEDS: QUEtiapine FUMARATE 25 MG TAB PO SCH (20:41)
[2023-02-24 06:36] VITALS: BP 122/59; TEMP 97.2; O2SAT 98
[2023-02-24] MEDS: DIVALPROEX 500MG *ER* TAB PO SCH ×2 (09:10→20:05)
[2023-02-24] MEDS: guaiFENesin ER TABLET 600 MG TAB PO SCH ×2 (09:10→20:05)
[2023-02-24] MEDS: busPIRone 10 MG TAB PO SCH ×2 (09:10→20:05)
[2023-02-24] MEDS: LOSARTAN 50MG TABLET PO SCH (09:12)
[2023-02-24] MEDS: NICOTINE 21MG/24HR 1 EA TRANSDERMAL TD PRN (13:11)
[2023-02-24 15:59] VITALS: BP 136/77; TEMP 98.8; O2SAT 98
[2023-02-24] MEDS: QUEtiapine FUMARATE 25 MG TAB PO SCH (20:05)
[2023-02-24] MEDS: ARIPiprazole 15 MG TAB (AbiLIFY) PO SCH (20:05)
[2023-02-25 06:03] VITALS: BP 124/78; TEMP 98.7; O2SAT 95
[2023-02-25] MEDS: LOSARTAN 50MG TABLET PO SCH (08:24)
[2023-02-25] MEDS: guaiFENesin ER TABLET 600 MG TAB PO SCH ×2 (08:24→20:16)
[2023-02-25] MEDS: DIVALPROEX 500MG *ER* TAB PO SCH ×2 (08:24→20:16)
[2023-02-25] MEDS: busPIRone 10 MG TAB PO SCH ×2 (08:24→20:16)
[2023-02-25] MEDS: NICOTINE 21MG/24HR 1 EA TRANSDERMAL TD PRN (15:06)
[2023-02-25 18:30] VITALS: BP 113/83; TEMP 97.9; O2SAT 99
[2023-02-25] MEDS: ARIPiprazole 15 MG TAB (AbiLIFY) PO SCH (20:16)
[2023-02-25] MEDS: QUEtiapine FUMARATE 25 MG TAB PO SCH (20:16)
[2023-02-26 06:07] VITALS: BP 149/77; TEMP 97.8; O2SAT 99
[2023-02-26] MEDS: guaiFENesin ER TABLET 600 MG TAB PO SCH (09:43)
[2023-02-26 09:46] VITALS: BP 160/87
[2023-02-26] MEDS: busPIRone 10 MG TAB PO SCH (09:46)
[2023-02-26] MEDS: LOSARTAN 50MG TABLET PO SCH (09:46)
[2023-02-26] MEDS: DIVALPROEX 500MG *ER* TAB PO SCH (09:46)
[2023-02-26] MEDS ORDERED: DEPA500T2 PO (10:06)
[2023-02-26] MEDS ORDERED: ABIL1TAB12 PO (10:06)
[2023-02-26] MEDS ORDERED: ABIL1INJ2 IM (10:06)
[2023-02-26] MEDS ORDERED: QUET1TAB17 PO (10:06)
[2023-02-26] MEDS ORDERED: NICO21PAT TD (10:06)
[2023-02-26] MEDS ORDERED: BUSP10TA PO (10:06)
== END 2023-02-26 12:08 | disposition home or self-care (01) | DRG 753 ==
LOC: M ED 20:05 → M ED INP 02-18 15:28 → UNDOADMIN 02-18 15:28 → M PSY 02-19 14:10 → M ED 02-19 15:45
PROVIDERS: ADMIT Student in an Organized Health Care Education/Training Program; ATTEND Student in an Organized Health Care Education/Training Program
DX: F31.60 Bipolar disorder, current episode mixed, unspecified (principal); I10 Essential (primary) hypertension; R45.851 Suicidal ideations; F31.0 Bipolar disorder, current episode hypomanic; Z91.018 Allergy to other foods; F17.290 Nicotine dependence, other tobacco product, uncomplicated; Z79.899 Other long term (current) drug therapy; F10.10 Alcohol abuse, uncomplicated

== ENCOUNTER 2023-03-04 16:11 | Emergency (ER) | payer MEDICAID, OTHER ==
[~2023-03-04] VITALS: Ht 175.3 cm; Wt 111.8 kg
[~2023-03-04 16:11] MED LIST changes: +ABIL1INJ2 IM; +ABIL1TAB12 PO; +DEPA500T2 PO; +LOSA100T46 PO; +NICO21PAT TD; +QUET1TAB17 PO
[2023-03-04 19:06] LABS: HEMATOCRIT 43.3 % (42.0-52.0); HEMOGLOBIN 14.8 g/dl (13.5-17.5); MEAN CORPUSCULAR HGB CONC 34.2 g/dl (32.0-36.5); MEAN CORPUSCULAR VOLUME 90.8 fl (80.0-96.0); PLATELET COUNT, AUTOMATED 300 10^3/uL (150-450); RED BLOOD COUNT 4.77 10^6/uL (4.30-6.10); WHITE BLOOD COUNT 9.4 10^3/uL (4.0-10.0)
[2023-03-04 21:51] LABS: AMPHETAMINES LEVEL URINE NEGATIVE (NEGATIVE); BARBITURATES URINE NEGATIVE (NEGATIVE); BENZODIAZEPINES URINE NEGATIVE (NEGATIVE); COCAINE METABOLITE URINE NEGATIVE (NEGATIVE)
[2023-03-04 21:52] LABS: CANNABINOIDS URINE NEGATIVE (NEGATIVE); METHADONE URINE NEGATIVE (NEGATIVE); OPIATES URINE NEGATIVE (NEGATIVE); PHENCYCLIDINE URINE NEGATIVE (NEGATIVE)
[2023-03-04 21:54] LABS: ETHYL ALCOHOL (ETHANOL) < 0.003 % (0.000-0.010); VALPROIC ACID (DEPAKOTE) 41.1 UG/ML (50.0-100.0)
[2023-03-04 21:57] LABS: ALBUMIN 3.3 G/DL (3.2-5.2); ALKALINE PHOSPHATASE 51 U/L (46-116); ALT/SGPT 16 U/L (7.0-40); AST/SGOT 12 U/L (<34); BILIRUBIN,DIRECT < 0.1 MG/DL (<0.4); BILIRUBIN,TOTAL 0.2 MG/DL (0.3-1.2); BLOOD UREA NITROGEN 15 MG/DL (9-23); CALCIUM LEVEL 9.3 MG/DL (8.5-10.1); CARBON DIOXIDE LEVEL 29 MMOL/L (20-31); CHLORIDE LEVEL 104 MMOL/L (98-107); CREATININE FOR GFR 0.75 MG/DL (0.70-1.30); GLOMERULAR FILTRATION RATE > 60.0 (>60); GLUCOSE, FASTING 89 MG/DL (60-100); POTASSIUM SERUM 4.1 MMOL/L (3.5-5.1); SALICYLATE LEVEL < 3.0 MG/DL (<30); SODIUM LEVEL 139 MMOL/L (136-145); TOTAL PROTEIN 6.3 G/DL (5.7-8.2)
[2023-03-04 21:58] LABS: THYROID STIMULATING HORMONE 1.707 uIU/ML (0.55-4.78)
[2023-03-04] MEDS ORDERED: QUET1TAB17 PO (23:07)
[2023-03-04] MEDS ORDERED: ABIL1INJ2 IM (23:07)
[2023-03-04] MEDS ORDERED: BUSP10TA PO (23:07)
[2023-03-04] MEDS ORDERED: DIVA500T9 PO (23:07)
[2023-03-04] MEDS ORDERED: ABIL1TAB12 PO (23:07)
[2023-03-04] MEDS ORDERED: NICO21DI9 TD (23:07)
[2023-03-04] MEDS ORDERED: HOME MED LIST COMPLETE! XX SCH (23:10)
[2023-03-05] MEDS ORDERED: LORazepam 1 MG TAB PO STA (13:50)
[2023-03-05 14:10] VITALS: BP 153/95; TEMP 99; O2SAT 99
== END 2023-03-05 14:11 | disposition home or self-care (01) ==
LOC: M ED 16:11
DX: F41.9 Anxiety disorder, unspecified (principal); F31.9 Bipolar disorder, unspecified; I10 Essential (primary) hypertension; F17.200 Nicotine dependence, unspecified, uncomplicated; Z91.018 Allergy to other foods; Z79.811 Long term (current) use of aromatase inhibitors; Z79.899 Other long term (current) drug therapy

== ENCOUNTER 2023-06-19 13:24 | Inpatient (IN) | payer MEDICAID, OTHER ==
[~2023-06-19] VITALS: Ht 175.3 cm; Wt 119.8 kg
[~2023-06-19 13:24] MED LIST changes: +DIVA500T9 PO; +NICO21DI9 TD
[2023-06-19 14:14] LABS: HEMATOCRIT 47.7 % (42.0-52.0); HEMOGLOBIN 16.1 g/dl (13.5-17.5); MEAN CORPUSCULAR HGB CONC 33.8 g/dl (32.0-36.5); MEAN CORPUSCULAR VOLUME 91.9 fl (80.0-96.0); PLATELET COUNT, AUTOMATED 321 10^3/uL (150-450); RED BLOOD COUNT 5.19 10^6/uL (4.30-6.10); WHITE BLOOD COUNT 9.4 10^3/uL (4.0-10.0)
[2023-06-19 14:37] LABS: ALBUMIN 3.7 G/DL (3.2-5.2); ALKALINE PHOSPHATASE 56 U/L (46-116); ALT/SGPT 16 U/L (7.0-40); AST/SGOT 13 U/L (<34); BILIRUBIN,DIRECT < 0.1 MG/DL (<0.4); BILIRUBIN,TOTAL 0.3 MG/DL (0.3-1.2); BLOOD UREA NITROGEN 16 MG/DL (9-23); CALCIUM LEVEL 9.6 MG/DL (8.5-10.1); CARBON DIOXIDE LEVEL 25 MMOL/L (20-31); CHLORIDE LEVEL 103 MMOL/L (98-107); CREATININE FOR GFR 0.73 MG/DL (0.70-1.30); GLOMERULAR FILTRATION RATE > 60.0 (>60); GLUCOSE, FASTING 103 MG/DL (60-100); POTASSIUM SERUM 4.3 MMOL/L (3.5-5.1); SALICYLATE LEVEL < 3.0 MG/DL (<30); SODIUM LEVEL 135 MMOL/L (136-145); TOTAL PROTEIN 7.2 G/DL (5.7-8.2)
[2023-06-19 14:41] LABS: THYROID STIMULATING HORMONE 0.722 uIU/ML (0.55-4.78)
[2023-06-19 14:46] LABS: AMPHETAMINES LEVEL URINE NEGATIVE (NEGATIVE); BARBITURATES URINE NEGATIVE (NEGATIVE); BENZODIAZEPINES URINE NEGATIVE (NEGATIVE); COCAINE METABOLITE URINE NEGATIVE (NEGATIVE); METHADONE URINE NEGATIVE (NEGATIVE)
[2023-06-19 14:47] LABS: CANNABINOIDS URINE NEGATIVE (NEGATIVE); OPIATES URINE NEGATIVE (NEGATIVE); PHENCYCLIDINE URINE NEGATIVE (NEGATIVE)
[2023-06-19 14:49] LABS: VALPROIC ACID (DEPAKOTE) 40.6 UG/ML (50.0-100.0)
[2023-06-19] MEDS: LORazepam 1 MG TAB PO ONE (16:33)
[2023-06-19] MEDS ORDERED: ACETAMINOPHEN TAB 650MG DOSE (2X325MG) PO PRN (17:45)
[2023-06-19] MEDS ORDERED: MAALOX 30 ML SUSP *UDC PO PRN (17:45)
[2023-06-19] MEDS ORDERED: MOM 30ML SUSPENSION UDC PO PRN (17:45)
[2023-06-19 21:14] VITALS: BP 118/80; TEMP 97.5; O2SAT 97
[2023-06-19] MEDS: traZODone 50 MG TAB PO PRN (21:25)
[2023-06-20 06:22] VITALS: BP 137/96; TEMP 98.6; O2SAT 96
[2023-06-20] MEDS ORDERED: HOME MED LIST COMPLETE! XX SCH (08:30)
[2023-06-20] MEDS: NICOTINE 21MG/24HR 1 EA TRANSDERMAL TD PRN (08:39)
[2023-06-20] MEDS: LOSARTAN 50MG TABLET PO SCH (10:55)
[2023-06-20] MEDS: DIVALPROEX 500MG *ER* TAB PO SCH (10:56)
[2023-06-20] MEDS: PROPRANOLOL 10 MG TAB PO SCH (10:56)
[2023-06-20] MEDS: busPIRone 10 MG TAB PO SCH (10:56)
[2023-06-20 11:02] VITALS: BP 129/91
[2023-06-20] MEDS: LORazepam 2 MG TAB PO PRN (13:12)
[2023-06-20 14:35] VITALS: BP 146/84
[2023-06-20 17:26] VITALS: BP 140/89; TEMP 97.7
[2023-06-20 21:09] VITALS: BP 118/79
[2023-06-20] MEDS: QUEtiapine FUMARATE 25 MG TAB PO SCH (21:12)
[2023-06-21 06:31] VITALS: BP 108/68; TEMP 96.9; O2SAT 100
[2023-06-21 06:54] VITALS: BP 108/68
[2023-06-21] MEDS: NICOTINE POLACRILEX 2 MG GUM PO PRN (10:48)
[2023-06-21 14:35] VITALS: BP 133/77
[2023-06-21 16:05] VITALS: BP 133/77; TEMP 97.4; O2SAT 99
[2023-06-21 21:28] VITALS: BP 107/60
[2023-06-22 06:58] VITALS: BP 126/64; TEMP 98.1; O2SAT 98
[2023-06-22] MEDS: LORazepam 2 MG TAB PO PRN (09:44)
[2023-06-23 06:32] VITALS: BP 131/83; TEMP 97.9; O2SAT 96
[2023-06-23 15:28] VITALS: BP 135/85; TEMP 98.7; O2SAT 100
[2023-06-24 06:31] VITALS: BP 121/85; TEMP 97.5; O2SAT 98
[2023-06-24 08:55] VITALS: BP 134/80
[2023-06-24] MEDS: IBUPROFEN 400MG TAB PO PRN (09:08)
[2023-06-24] MEDS: LORazepam 1 MG TAB PO PRN (13:00)
[2023-06-24 18:24] VITALS: BP 118/82; TEMP 98.1; O2SAT 99
[2023-06-24 20:31] VITALS: BP 129/78
[2023-06-25 06:07] VITALS: BP 121/67; TEMP 96.8; O2SAT 99
[2023-06-25] MEDS: SERTRALINE HCL 25 MG TABLET PO SCH (08:50)
[2023-06-25 09:36] LABS: CHOLESTEROL RISK RATIO 4.19 (<5); HDL CHOLESTEROL 45.3 MG/DL (>40); LDL CHOLESTEROL 109.3 MG/DL (<100); NON-HDL-C 144.7 MG/DL
[2023-06-25] MEDS: diphenhydrAMINE 25MG CAP PO PRN (10:23)
[2023-06-25 18:29] VITALS: BP 138/74; TEMP 97.9; O2SAT 98
[2023-06-26 06:52] VITALS: BP 123/76; TEMP 96.9; O2SAT 98
[2023-06-26] MEDS: LORazepam 0.5 MG TAB PO PRN (10:09)
[2023-06-26 18:24] VITALS: BP 141/76; TEMP 97.6
[2023-06-26] MEDS: busPIRone 5 MG TAB PO SCH (21:44)
[2023-06-27 06:26] VITALS: BP 120/63; TEMP 97.8; O2SAT 97
[2023-06-27] MEDS: SERTRALINE HCL 50 MG TAB PO SCH (08:50)
[2023-06-27] MEDS: clonazePAM 0.5 MG TAB PO SCH (10:55)
[2023-06-27] MEDS: QUEtiapine FUMERATE XR 50MG TABER PO SCH (14:19)
[2023-06-27 18:00] VITALS: BP 124/63; TEMP 98.1; O2SAT 97
[2023-06-27] MEDS: QUEtiapine FUMARATE 25 MG TAB PO SCH (20:28)
[2023-06-28 06:30] VITALS: BP 123/70; TEMP 97.5; O2SAT 91
[2023-06-28 08:41] VITALS: BP 131/71
[2023-06-28] MEDS ORDERED: TRAZ-252 PO (10:02)
[2023-06-28] MEDS ORDERED: CLON0.5T2 PO (10:02)
[2023-06-28] MEDS ORDERED: SERT50TA29 PO (10:02)
[2023-06-28] MEDS ORDERED: NICO2GUM PO (10:02)
[2023-06-28] MEDS ORDERED: QUET50TA67 PO (10:02)
[2023-06-28] MEDS ORDERED: PROP10TA56 PO (10:02)
[2023-06-28] MEDS ORDERED: BUSP15TA47 PO (10:02)
== END 2023-06-28 13:34 | disposition home or self-care (01) | DRG 753 ==
LOC: M ED 13:24 → M ED INP 17:44 → M PSY 20:56
PROVIDERS: ADMIT Student in an Organized Health Care Education/Training Program; ATTEND Student in an Organized Health Care Education/Training Program
DX: F31.60 Bipolar disorder, current episode mixed, unspecified (principal); G25.71 Drug induced akathisia; Z91.018 Allergy to other foods; Z79.899 Other long term (current) drug therapy; R45.851 Suicidal ideations; I10 Essential (primary) hypertension; Z86.711 Personal history of pulmonary embolism; F17.290 Nicotine dependence, other tobacco product, uncomplicated; F12.90 Cannabis use, unspecified, uncomplicated; F10.10 Alcohol abuse, uncomplicated

== ENCOUNTER → 2023-10-15 | Outpatient (REF) ==
[~2023-10-15] MED LIST changes: +BUSP15TA47 PO; +CLON0.5T2 PO; +NICO2GUM PO; +PROP10TA56 PO; +QUET50TA67 PO; +SERT50TA29 PO
== END ==
LOC: M PLAIMG 09:59
PROVIDERS: ATTEND Internal Medicine
DX: R52 Pain, unspecified (principal)